=== PATIENT | male | born 2000 | race Hispanic/Latino ===

== ENCOUNTER 2022-06-02 22:03 | Emergency (ER) | payer MEDICAID, OTHER ==
[~2022-06-02] VITALS: Ht 167.6 cm; Wt 69.4 kg
[2022-06-02 22:06] VITALS: BP 132/71
[2022-06-02] MEDS ORDERED: MAG/ALUM/SIMETH 30 ML UDCUP PO ONE (22:30)
[2022-06-02] MEDS ORDERED: ONDANSETRON 4MG INJ IVP ONE (22:30)
[2022-06-02] MEDS ORDERED: 0.9%NACL 1000ML 1,000 ML IV SCH (22:30)
[2022-06-02] MEDS ORDERED: LIDOCAINE HCL 2% VISCOUS 15 ML UDCUP PO ONE (22:30)
[2022-06-02] MEDS ORDERED: DICYCLOMINE HCL 10 MG/5 ML ML PO ONE (22:30)
[2022-06-02] MEDS ORDERED: ACETAMINOPHEN WITH CODEINE 1 TAB TAB PO ONE (22:30)
[2022-06-02] MEDS ORDERED: IBUPROFEN 800 MG TAB PO ONE (22:30)
[2022-06-02 23:07] LABS: BASOPHILS % (AUTO) 0.4 % (0.0-5.0); HEMATOCRIT 43.8 % (42-54); LYMPHOCYTES % (AUTO) 16.3 % (21.0-51.0); MEAN CORPUSCULAR HEMOGLOBIN 27.9 pg (27.0-33.0); MEAN CORPUSCULAR HGB CONC 34.9 g/dL (32.0-36.0); MEAN CORPUSCULAR VOLUME 79.8 fL (80-100); MONOCYTES % (AUTO) 8.5 % (3.0-13.0); NEUTROPHILS % (AUTO) 74.3 % (40.0-77.0); PLATELET COUNT (AUTO) 308 K/uL (130-400); RED BLOOD CELL COUNT(AUTO) 5.49 MIL/uL (4.50-6.20); RED CELL DISTRIBUTION WIDTH 13.1 % (11.0-15.5); WHITE BLOOD COUNT (AUTO) 17.3 K/uL (4.8-10.8)
[2022-06-02] MEDS ORDERED: CEFTRIAXONE 1G VIAL ONE (23:16)
[2022-06-02 23:18] LABS: CREATININE 1.1 mg/dL (0.5-1.5); POTASSIUM 3.7 mmol/L (3.5-5.1)
[2022-06-02] MEDS ORDERED: CEFTRIAXONE 1G VIAL IVP ONE (23:30)
[2022-06-02] MEDS ORDERED: ACET-2079 PO (23:31)
[2022-06-02] MEDS ORDERED: LIDO113G3 TP (23:31)
[2022-06-02] MEDS ORDERED: AMOX1TAB16 PO (23:31)
[2022-06-02] MEDS ORDERED: MAG-156 PO (23:31)
[2022-06-02] MEDS ORDERED: IBUP-2071 PO (23:31)
== END 2022-06-02 23:58 | disposition home or self-care (01) ==
LOC: EDH 22:03
DX: J03.90 Acute tonsillitis, unspecified (principal); E86.0 Dehydration; Z20.822 Contact with and (suspected) exposure to COVID-19; Z79.1 Long term (current) use of non-steroidal anti-inflammatories (NSAID)
CPT/HCPCS: 99284; 96374; 87635; 96375; 80053; 85025; 87880; 86308; 83605; 86140; 36415; C9803; J7030; J0696; J2405